=== PATIENT | male | born 1990 | race Caucasian/White ===

== ENCOUNTER 2018-03-23 10:56 | Emergency (ER) | payer OTHER ==
[2018-03-23 11:06] VITALS: BP 148/88; PULSE 78; RESP 18; TEMP 99; O2SAT 100
[2018-03-23] MEDS ORDERED: Tetanus/Diphtheria Toxoids 0.5 ml Syringe IM ONE ×2 (11:12→11:24)
[2018-03-23] MEDS ORDERED: Lidocaine 2% Inj (20ml) INFIL ONE (11:12)
--- NOTE | 2018-03-23 11:12 | C.PDOC ---
History Of Present Illness R ARM INJURY ONSET THIS MORNING. ACCID STRUCK METAL EDGE OF TRUCK DOOR, CO BRUISING AND LACERATION TO FOREARM. NO OTHER ASSOC INJURY OR SX EXAM NAD NONTOXIC EXT R FOREARM +CONTUSION MIDFOREARM AROM WO DIFF. +FOCAL TEND MID FOREARM. NO GROSS DEFORM. FINGERS AROM WO DIFF SKIN +LAC MID FOREARM R. 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 Time Seen by Provider: 03/23/18 11:08 Chief Complaint (Nursing): Abnormal Skin Integrity History Per: Patient History/Exam Limitations: no limitations Onset/Duration Of Symptoms: Hrs Current Symptoms Are (Timing): Still Present Past Medical History Reviewed: Historical Data, Nursing Documentation, Vital Signs Vital Signs: Last Vital Signs Temp 99 F 03/23/18 11:04 Pulse 78 03/23/18 11:04 Resp 18 03/23/18 11:04 BP 148/88 03/23/18 11:04 Pulse Ox 100 03/23/18 11:47 - Medical History PMH: No Chronic Diseases Other Surgeries: Hx of surgeries Family History: States: No Known Family Hx - Social History Hx Alcohol Use: No Hx Substance Use: No - Immunization History Hx Tetanus Toxoid Vaccination: No Hx Influenza Vaccination: No Hx Pneumococcal Vaccination: No Review Of Systems Except As Marked, All Systems Reviewed And Found Negative. Skin: Positive for: Bruising (Right forearm ), Other (Laceration to right forearm ) Physical Exam - Physical Exam Appears: Non-toxic, No Acute Distress Skin: Other (Laceration to right Mid forearm, no foreign body, no active bleeding) Head: Atraumatic Respiratory: Other (NARD) Extremity: Normal ROM (Right Midforearm AROM without difficulty, Fingers AROM without difficulty ), Tenderness (Focal tenderness to right forearm ), No Deformity (Gross deformity), Other (Contusion to right forearm) Neurological/Psych: Oriented x3, Normal Speech ED Course And Treatment O2 Sat by Pulse Oximetry: 100 (RA) Pulse Ox Interpretation: Normal Laceration - Laceration Repair 1 Wound Length (In cm): 1 Description Of Wound: Linear, Clean Wound Cleansed With: Betadine, Sterile Saline Anesthesia: Lidocaine 2% Wound Examination: Irrigated With Saline, No FB With Wound Exploration Wound Closure: Dipti (4) Wound Complexity: Simple Medical Decision Making Medical Decision Making: Plan: Tenivac 0.5 ml IM Toradol 60 mg IM XR right forearm Disposition Counseled Patient/Family Regarding: Studies Performed, Diagnosis, Need For Followup - Disposition Referrals: [facility] [Outside] [facility] [Outside] Disposition: HOME/ ROUTINE Disposition Time: 11:47 Condition: IMPROVED Additional Instructions: return 7-10 days for staple removal Instructions: Laceration Repair With [place] (DC) Forms: [facility] (Hungarian) - Clinical Impression Clinical Impression: Forearm laceration, Forearm contusion - Scribe Statement The provider has reviewed the documentation as recorded by the Scribe (Kayleen Delarosa) Provider Attestation: All medical record entries made by the Scribe were at my direction and personally dictated by me. I have reviewed the chart and agree that the record accurately reflects my personal performance of the history, physical exam, medical decision making, and the department course for this patient. I have also personally directed, reviewed, and agree with the discharge instructions and disposition.
[2018-03-23] MEDS ORDERED: Lidocaine 2% MPF (5 ml) Inj ONE (11:24)
--- NOTE | 2018-03-23 12:24 | RAD ---
PROCEDURE: Radiographs of the Right Forearm HISTORY: TRAUMA COMPARISON: None available. TECHNIQUE: Frontal and lateral views obtained. FINDINGS: BONES: No fracture or destructive lesion. JOINT SPACES: Unremarkable. OTHER FINDINGS: Limited dorsal soft tissue edema is seen at the mid forearm without retained radiodense foreign body or emphysema soft tissue changes related. IMPRESSION: No acute fracture or dislocation right forearm.
== END 2018-03-23 11:59 | disposition home or self-care (01) ==
LOC: C.ER 10:56
DX: S51.811A Laceration without foreign body of right forearm, initial encounter (principal); W22.8XXA Striking against or struck by other objects, initial encounter; Y92.89 Other specified places as the place of occurrence of the external cause; Y99.0 Civilian activity done for income or pay; Z23 Encounter for immunization
CPT/HCPCS: 12001; 73090; 90471; 90714; 96372; 99283; J1885

== ENCOUNTER 2018-04-07 09:39 | Emergency (ER) | payer OTHER ==
[2018-04-07 09:46] VITALS: BP 130/82; PULSE 66; TEMP 98; O2SAT 98
--- NOTE | 2018-04-07 10:04 | C.PDOC ---
History Of Present Illness 37 year old male presents to the ED for wound check and staple removal. Patient was seen in the ED on March 23 because he was involved in a work related accident. Patient sustained a 1 cm laceration to his right forearm, at that time X-rays done were normal and wound was closed with 4 willam. Patient denies fever, chills, arm pain, new injury, trauma. Time Seen by Provider: 04/07/18 10:01 Chief Complaint (Nursing): Suture/Staple Removal History Per: Patient History/Exam Limitations: no limitations Onset/Duration Of Symptoms: Days Ago Current Symptoms Are (Timing): Better Location Of Injury: Right: Arm Recent travel outside of the [place]: No Additional History Per: Patient Past Medical History Reviewed: Historical Data, Nursing Documentation, Vital Signs Vital Signs: Last Vital Signs Temp 98 F 04/07/18 09:44 Pulse 66 04/07/18 09:44 Resp 17 04/07/18 10:13 BP 130/82 04/07/18 09:44 Pulse Ox 98 04/07/18 10:07 - Medical History PMH: No Chronic Diseases Surgical History: No Surg Hx Family History: States: Unknown Family Hx - Social History Hx Alcohol Use: No Hx Substance Use: No - Immunization History Hx Tetanus Toxoid Vaccination: No Hx Influenza Vaccination: No Hx Pneumococcal Vaccination: No Review Of Systems Constitutional: Negative for: Fever, Chills Cardiovascular: Negative for: Chest Pain Respiratory: Negative for: Shortness of Breath Gastrointestinal: Negative for: Nausea, Vomiting Musculoskeletal: Positive for: Arm Pain Physical Exam - Physical Exam Appears: Non-toxic, No Acute Distress Skin: Normal Color, Warm, Dry Head: Atraumatic, Normacephalic Eye(s): bilateral: Normal Inspection Extremity: Normal ROM, No Tenderness, Capillary Refill (< 2 seconds), No Swelling, Other (right forearm well healed laceration with 4 willam) Pulses: Left Radial: Normal, Right Radial: Normal Neurological/Psych: Oriented x3, Normal Speech Gait: Steady ED Course And Treatment O2 Sat by Pulse Oximetry: 98 (ON RA) Pulse Ox Interpretation: Normal Medical Decision Making Medical Decision Making: Impression: wound repair Plan: * 4 willam in right forearm seen and removed with no problem. patient tolerated the procedure well. Disposition Counseled Patient/Family Regarding: Diagnosis, Rx Given - Disposition Referrals: [facility] [Outside] Disposition: HOME/ ROUTINE Disposition Time: 10:05 Condition: STABLE Prescriptions: Albuterol HFA [Ventolin HFA 90 mcg/actuation (8 g)] 1 puff IH BID #1 inhaler Forms: [facility] (Kazakh), General Discharge Instructions - POA Present On Arrival: None - Clinical Impression Clinical Impression: Removal of willam, Seasonal allergies - Scribe Statement The provider has reviewed the documentation as recorded by the Scribe Douglas Engle All medical record entries made by the Scribe were at my direction and personally dictated by me. I have reviewed the chart and agree that the record accurately reflects my personal performance of the history, physical exam, medical decision making, and the department course for this patient. I have also personally directed, reviewed, and agree with the discharge instructions and disposition.
[2018-04-07 10:14] VITALS: RESP 17
== END 2018-04-07 10:13 | disposition home or self-care (01) ==
LOC: C.ER 09:39
DX: Z48.02 Encounter for removal of sutures (principal); J30.2 Other seasonal allergic rhinitis